=== PATIENT | female | born 1960 | race Caucasian/White ===

== ENCOUNTER → 2016-02-26 | Outpatient (CLI) | payer OTHER ==
[~2016-02-26] MED LIST: ASPIRIN ADULT L81 M2 PO; CIPROFLOXACIN500 M4 PO; CLOPIDOGREL75 MG PO; DARVOCET N 1001 TAB PO; DAYPRO600 M1 PO; HYDROCODONE BIT1 T11 PO; NORVASC5 MG PO; TRAMADOL HCL50 MG PO; ZOFRAN4 MG PO
[2016-02-26 11:55] LABS: BASO # 0.1 10*3/uL (0.0-0.1); BASO % 0.5 % (0.0-1.0); EOS # 0.2 10*3/uL (0.0-0.4); EOS % 1.3 % (1.0-4.0); HEMATOCRIT 45.7 % (37.0-47.0); HEMOGLOBIN 15.6 g/dl (12.0-16.0); IG # 0.1 10*3/uL (0.0-0.1); LYMPH # 3.3 10*3/uL (1.3-4.4); LYMPH % 29.2 % (27.0-41.0); MEAN CELL VOLUME 92.5 fl (81.0-99.0); MEAN CORPUSCULAR HGB 31.6 pg (27.0-31.0); MEAN CORPUSCULAR HGB CONC 34.1 g/dl (33.0-37.0); MEAN PLATELET VOLUME 9.4 fl (9.6-12.3); MONO # 0.8 10*3/uL (0.1-1.0); MONO % 7.2 % (3.0-9.0); NEUT % 61.3 % (47.0-73.0); PLATELET COUNT AUTOMATED 232 10*3/uL (130-400); RED BLOOD COUNT 4.94 10*6/uL (4.10-5.10); RED CELL DISTRI WIDTH 12.4 % (0-14.5); WHITE BLOOD COUNT 11.4 10*3/uL (4.8-10.8)
[2016-02-26 12:10] LABS: ALBUMIN 3.8 gm/dl (3.1-4.5); ALKALINE PHOSPHATASE 97 U/L (45-117); BILIRUBIN, TOTAL 0.2 mg/dl (0.2-1.0); BUN 14 mg/dl (7-24); CARBON DIOXIDE 25 mmol/L (21-32); CHLORIDE 104 mmol/L (98-107); EST GLOM FILT AFRICAN AMERICAN > 60 ml/min; GLUCOSE 95 mg/dL (65-99); POTASSIUM 4.1 mmol/L (3.5-5.1); SGOT/AST 12 IU/L (3-35); SGPT/ALT 19 U/L (12-78); SODIUM 141 mmol/L (136-145); TOTAL PROTEIN 7.6 gm/dL (6.4-8.2)
== END | disposition home or self-care (01) ==
LOC: RESCLI 02:53 → LAB 02:53 → RESCLI 13:20
PROVIDERS: Hospitalist
DX: I10 Essential (primary) hypertension (principal); I38 Endocarditis, valve unspecified; Z72.0 Tobacco use; E66.3 Overweight; I73.00 Raynaud's syndrome without gangrene; Z68.29 Body mass index [BMI] 29.0-29.9, adult

== ENCOUNTER 2016-03-11 14:51 | Emergency (ER) | payer OTHER ==
[~2016-03-11] VITALS: Ht 162.5 cm; Wt 79.4 kg
[~2016-03-11 14:51] MED LIST changes: -ASPIRIN ADULT L81 M2 PO; -CIPROFLOXACIN500 M4 PO; -CLOPIDOGREL75 MG PO; -HYDROCODONE BIT1 T11 PO; -TRAMADOL HCL50 MG PO; -ZOFRAN4 MG PO
[2016-03-11 16:18] LABS: BASO # 0.1 10*3/uL (0.0-0.1); BASO % 0.5 % (0.0-1.0); EOS # 0.2 10*3/uL (0.0-0.4); EOS % 1.2 % (1.0-4.0); HEMATOCRIT 45.7 % (37.0-47.0); HEMOGLOBIN 15.6 g/dl (12.0-16.0); IG # 0.1 10*3/uL (0.0-0.1); LYMPH # 3.2 10*3/uL (1.3-4.4); LYMPH % 24.1 % (27.0-41.0); MEAN CELL VOLUME 92.5 fl (81.0-99.0); MEAN CORPUSCULAR HGB 31.6 pg (27.0-31.0); MEAN CORPUSCULAR HGB CONC 34.1 g/dl (33.0-37.0); MEAN PLATELET VOLUME 9.5 fl (9.6-12.3); MONO # 1.1 10*3/uL (0.1-1.0); MONO % 8.5 % (3.0-9.0); NEUT # 8.6 10*3/uL (2.3-7.9); NEUT % 65.3 % (47.0-73.0); PLATELET COUNT AUTOMATED 227 10*3/uL (130-400); RED BLOOD COUNT 4.94 10*6/uL (4.10-5.10); RED CELL DISTRI WIDTH 12.9 % (0-14.5); WHITE BLOOD COUNT 13.2 10*3/uL (4.8-10.8)
[2016-03-11 16:33] LABS: ALKALINE PHOSPHATASE 93 U/L (45-117); BILIRUBIN, TOTAL 0.3 mg/dl (0.2-1.0); BUN 15 mg/dl (7-24); CARBON DIOXIDE 24 mmol/L (21-32); CHLORIDE 109 mmol/L (98-107); EST GLOM FILT AFRICAN AMERICAN > 60 ml/min; GLUCOSE 97 mg/dL (65-99); POTASSIUM 3.7 mmol/L (3.5-5.1); SGOT/AST 14 IU/L (3-35); SGPT/ALT 22 U/L (12-78); SODIUM 143 mmol/L (136-145)
[2016-03-31] MEDS ORDERED: ASPIRIN ADULT L81 M2 PO (13:01)
[2016-03-31] MEDS ORDERED: CIPROFLOXACIN500 M4 PO (13:01)
[2016-03-31] MEDS ORDERED: CLOPIDOGREL75 MG PO (13:01)
[2016-03-31] MEDS ORDERED: TRAMADOL HCL50 MG PO (13:02)
[2016-04-03] MEDS ORDERED: HYDROCODONE BIT1 T11 PO (08:41)
[2016-04-03] MEDS ORDERED: ZOFRAN4 MG PO (08:42)
== END 2016-03-11 19:35 | disposition short-term general hospital (02) ==
LOC: ED 14:51
PROVIDERS: Student in an Organized Health Care Education/Training Program
DX: I77.6 Arteritis, unspecified (principal); F17.200 Nicotine dependence, unspecified, uncomplicated; Z79.899 Other long term (current) drug therapy

== ENCOUNTER → 2016-05-08 | Outpatient (CLI) | payer OTHER ==
[~2016-05-08] MED LIST changes: +ASPIRIN ADULT L81 M2 PO; +CIPROFLOXACIN500 M4 PO; +CLOPIDOGREL75 MG PO; +HYDROCODONE BIT1 T11 PO; +TRAMADOL HCL50 MG PO; +ZOFRAN4 MG PO
--- NOTE | ~2016-05-08 | PR ---
[place], [place] PROGRESS NOTE NAME: SOFY HERNÁNDEZ [facility] #: [id number] UNIT #: [id number] ROOM: DOCTOR: COLLIN Hayden,CARLEE BIRTHDATE: [birth year] DOS: HBO THERAPY NOTE This is treatment #16. INDICATION: Raynaud's syndrome with gangrene, protocol is 2.0 PADDY with 90 minutes of oxygen and no air breaks. Compression began at 8:41 and ended at 8:50. Treatment length of 108 minutes. Decompression began at 10:20 and ended at 10:29. Treatment length was 108 minutes. Vitals pre-HBO shows a blood pressure of 130/72, pulse is 66, respirations 16, temperature is 98. Post-HBO, the blood pressure is 142/70, pulse of 60, respirations 16, temperature 97.9. TEED scale is grade 0 bilaterally pre and post-HBO treatment. The patient tolerated the treatment well without adverse events. I certify that I supervised this HBO treatment in accordance with Medicare guidelines. A trained emergency response team is readily available per hospital policies and procedures. Continue HBO therapy as ordered. CARLEE POLANCO MD CM:PNTRANS [phone] CARLEE POLANCO M.D. 05/08/16 230 interface
--- NOTE | ~2016-05-08 | PR ---
[place], [place] PROGRESS NOTE NAME: SOFY HERNÁNDEZ [facility] #: [id number] UNIT #: [id number] ROOM: DOCTOR: COLLIN HaydenCARLEE BIRTHDATE: [birth year] DOS: 05/08/2016 CHIEF COMPLAINT: Wound of the tip of the third digit of the right hand. HISTORY OF PRESENT ILLNESS: The location of the wound is the tip of the third digit. The etiology is acute ischemia secondary to Raynaud's phenomenon with small vessel disease. She has undergone OR debridement. She has been in HBO therapy, tolerating it well without any issues for approximately 2 weeks now. She had OR debridement to remove the necrotic tip of the finger; however, she still has an ulcer present. The wound did heal nicely; however, there was dark discoloration noted at the tip of the finger approximately 2 weeks ago, which now has ulcerated and it has formed a necrotic base. It is fairly small, but is present. Overall, she says the pain is improved at the tip of the finger, but she is aware of this ulcer tip that is present. She is still taking her Plavix and aspirin and nitroglycerin ointment as well as calcium channel blockers. She has no other specific complaints. PHYSICAL EXAMINATION: VITAL SIGNS: Stable. Blood pressure is 142/70, pulse 60, respirations 16 and temperature 97.9. MUSCULOSKELETAL: The ulcer is measuring 0.1 x 0.1 x 0.1, but actually it is not actually open, but there is a small necrotic tip noted. It is still slightly tender to touch. The finger remains slightly erythematous and swollen. ASSESSMENT AND PLAN: Acute ischemic digit of the right hand, which is definitely improved overall since when she first presented; however, she continues to have an area of ischemia that is noted with some necrotic tip to the finger still present. She is using Santyl on this and I would like her to also use bacitracin. For now, the x-ray really was unremarkable that she had done, and have her follow up next Thursday. We may need to debride a little bit of this necrotic tissue next week. However, I do want to continue with hyperbaric since it seems that overall her pain and discomfort are improved and I am worried that if we stop it prematurely, this will worsen and cause further ischemia with further loss of her digits. [place], [place] PROGRESS NOTE NAME: SOFY HERNÁNDEZ UNIT #: [id number] ROOM: DOCTOR: COLLIN Hayden,CARLEE BIRTHDATE: [birth year] CARLEE POLANCO MD CM:REBECCA [id number] CARLEE POLANCO M.D. 05/08/16 1755 interface
== END ==
LOC: WOUNDCARE 02:24
DX: I73.01 Raynaud's syndrome with gangrene (principal); L98.491 Non-pressure chronic ulcer of skin of other sites limited to breakdown of skin

== ENCOUNTER → 2016-05-12 | Outpatient (CLI) | payer OTHER ==
--- NOTE | ~2016-05-12 | PR ---
[place], [place] PROGRESS NOTE NAME: SOFY HERNÁNDEZ [facility] #: [id number] UNIT #: [id number] ROOM: DOCTOR: COLLIN Hayden,CARLEE BIRTHDATE: [birth year] DOS: 05/12/2016 HBO THERAPY NOTE This is treatment #17. INDICATION: Raynaud's syndrome with gangrene. The protocol is 2.0 PADDY with 90 minutes of oxygen and no air breaks. Compression began at 8:35. Treatment pressure was reached at 8:45. Decompression began at 10:15 and ended at 10:25. Treatment length was 110 minutes. Vitals, pre-HBO shows a blood pressure of 132/68, pulse is 64, respirations 16, temperature 97.5. Post-HBO, the blood pressure is 120/72, pulse is 60, respirations 16, temperature 98. The indication is Raynaud's syndrome with gangrene. TEED scale is grade 0 bilaterally pre and post-HBO treatment. The patient tolerated the treatment well without adverse events. I certify that I supervised this HBO treatment in accordance with Medicare guidelines. A trained emergency response team is readily available per hospital policies and procedures. Continue HBO therapy as ordered. CARLEE POLANCO MD CM:PNTRANS [phone] CARLEE POLANCO M.D. 05/12/16 2336 interface
== END ==
LOC: WOUNDCARE 01:40
DX: I73.01 Raynaud's syndrome with gangrene (principal)

== ENCOUNTER → 2016-05-13 | Outpatient (CLI) | payer OTHER ==
--- NOTE | ~2016-05-13 | PR ---
[place], [place] PROGRESS NOTE NAME: SOFY HERNÁNDEZ [facility] #: [id number] UNIT #: [id number] ROOM: DOCTOR: COLLIN HaydenCARLEE BIRTHDATE: [birth year] DOS: 05/13/2016 CHIEF COMPLAINT: Wound of the tip of the third digit of the right hand. HISTORY OF PRESENT ILLNESS: The location of the wound is the tip of the third digit. The etiology is acute ischemia secondary to Raynaud's phenomena with small vessel disease. She has undergone OR debridement. She has been in HBO therapy for a total of 8 treatments approximately without any issues in HBO. She is status post OR debridement that removed a large necrotic tip of the finger without any bone involvement. The wound had healed quite nicely; however, there was a very small dark discoloration noted that had reformed at the original area. It was fairly small and she had been using Santyl to the base of it. So, overall she says the pain is definitely improved. It only hurts if she bangs or touches the tip of her finger in a harsh manner. She is tolerating her hyperbaric and she is on aspirin, Plavix, nitroglycerin ointment as well as calcium channel blockers. She has no other specific complaints. PHYSICAL EXAMINATION: VITAL SIGNS: Stable. Temperature is 97.8, pulse is 64, respirations 18, blood pressure is 138/78. SKIN: The wound remains closed. The small ulceration or necrotic area that was starting to reform at the tip has definitely fallen off and so that is not there anymore. There is no sign of infection. There is some thickening of the skin around the tip of the finger, but overall it looks pretty good and stable. No debridement was done. ASSESSMENT AND PLAN: Acute ischemic digit of the right hand, which is improving and appears stable. The small dark necrotic area has improved and fallen off. I would like her to now keep this area dry if possible, to stop using the Santyl and use Betadine on it daily for now. She can keep it covered and protect it at times if she wishes to, but overall I would recommend to try to keep it open. Continue hyperbaric as ordered. CARLEE POLANCO MD CM:REBECCA [phone] CARLEE POLANCO M.D. 05/13/16 1440 interface
--- NOTE | ~2016-05-13 | PR ---
[place], [place] PROGRESS NOTE NAME: SOFY HERNÁNDEZ [facility] #: [id number] UNIT #: [id number] ROOM: DOCTOR: COLLIN Hayden,CARLEE BIRTHDATE: [birth year] DOS: 05/13/2016 HBO THERAPY NOTE This is HBO treatment #18. INDICATION: Raynaud's phenomenon with acute ischemia. The protocol is 2.0 PADDY with 90 minutes of oxygen and no air breaks. Compression began at 8:35. Treatment pressure was reached at 8:45. Treatment length was 110 minutes. Decompression began at 10:15 and ended at 10:25. Vitals pre-HBO shows a blood pressure of 140/82, pulse of 64, respirations 18 and temperature 97.8. Post-HBO, the blood pressure is 138/78, pulse is 64, respirations 18 and temperature 97.8. TEED scale is grade 0 bilaterally pre and post-HBO treatment. The patient tolerated the treatment well without adverse events. I certify that I supervised this treatment in accordance with Medicare guidelines. A trained emergency response team is readily available per hospital policies and procedures. Continue HBO therapy as ordered. CARLEE POLANCO MD CM:PNTRANS [id number] CARLEE POLANCO M.D. 05/13/16 1447 interface
== END ==
LOC: WOUNDCARE 02:55
DX: I73.01 Raynaud's syndrome with gangrene (principal); L98.491 Non-pressure chronic ulcer of skin of other sites limited to breakdown of skin; I99.8 Other disorder of circulatory system

== ENCOUNTER → 2016-05-14 | Outpatient (CLI) | payer OTHER ==
--- NOTE | ~2016-05-14 | PR ---
[place], [place] PROGRESS NOTE NAME: SOFY HERNÁNDEZ [facility] #: [id number] UNIT #: [id number] ROOM: DOCTOR: COLLIN Hayden,CARLEE BIRTHDATE: [birth year] DOS: 05/15/2016 HBO THERAPY NOTE This is treatment #20. INDICATION: Raynaud's syndrome with acute arterial insufficiency. The protocol is 2.0 PADDY with 90 minutes of oxygen and no air breaks. Compression begins at 8:36. Treatment pressure was reached at 8:46. Treatment length was 110 minutes. Decompression begins at 10:16 ends at 10:26. Vitals pre-HBO shows a blood pressure of 140/66, pulse of 60, respirations 16, temperature 97.8. Post-HBO, the blood pressure is 132/76, pulse of 60, respirations 16, temperature 97.9. TEED scale is grade 0 bilaterally pre and post-HBO treatment. The patient tolerated the treatment well. I certify that I supervised this HBO treatment in accordance with Medicare guidelines. A trained emergency response team is readily available per hospital policies and procedures. Continue HBO therapy as ordered you. CARLEE POLANCO MD CM:PNTRANS [id number] CARLEE POLANCO M.D. 05/15/16 1343 interface
== END ==
LOC: WOUNDCARE 03:09
DX: I73.01 Raynaud's syndrome with gangrene (principal); I77.1 Stricture of artery

== ENCOUNTER → 2016-05-15 | Outpatient (CLI) | payer OTHER ==
--- NOTE | ~2016-05-15 | PR ---
[place], [place] PROGRESS NOTE NAME: SOFY HERNÁNDEZ [facility] #: [id number] UNIT #: [id number] ROOM: DOCTOR: COLLIN Hayden,CARLEE BIRTHDATE: [birth year] DOS: 05/15/2016 HBO THERAPY NOTE This is treatment #20. INDICATION: Raynaud's syndrome with acute arterial insufficiency. The protocol is 2.0 PADDY with 90 minutes of oxygen and no air breaks. Compression begins at 8:36. Treatment pressure was reached at 8:46. Treatment length was 110 minutes. Decompression begins at 10:16 ends at 10:26. Vitals pre-HBO shows a blood pressure of 140/66, pulse of 60, respirations 16, temperature 97.8. Post-HBO, the blood pressure is 132/76, pulse of 60, respirations 16, temperature 97.9. TEED scale is grade 0 bilaterally pre and post-HBO treatment. The patient tolerated the treatment well. I certify that I supervised this HBO treatment in accordance with Medicare guidelines. A trained emergency response team is readily available per hospital policies and procedures. Continue HBO therapy as ordered you. CARLEE POLANCO MD CM:PNTRANS 1049 1343 TM CARLEE POLANCO M.D. 05/19/16 0849 [employer].TM
== END ==
LOC: WOUNDCARE 03:20
DX: I73.01 Raynaud's syndrome with gangrene (principal); I77.1 Stricture of artery

== ENCOUNTER → 2016-05-16 | Outpatient (CLI) | payer OTHER ==
[~2016-05-16] MED LIST changes: +AMLODIPINE BESY1 TAB PO; +CELEBREX100 MG PO; +NORVASC10 MG PO; +PLAVIX75 M1 PO
--- NOTE | ~2016-05-16 | PROC NOTE ---
[place], [place] PROCEDURE NOTE [id number] UN[facility] #: [id number] ROOM: DOCTOR: BLUE PRETTY DO BIRTHDATE: [birth year] DOS: 05/16/2016 HYPERBARIC PROCEDURE NOTE SUPERVISING PHYSICIAN: Blue Pretty DO SUBJECTIVE: The patient is scheduled for HBO treatment. The protocol was used for a 90-minute treatment at 2.0 PADDY and 100% oxygen with both a 10-minute compression and decompression time interval. Total treatment time 110 minutes. This is treatment number 21. OBJECTIVE: VITAL SIGNS: Both pre and post treatment vital signs were taken, reviewed and appeared stable. Exam pre and post-treatment: EARS: Canals clear. No evidence of blockage, edema, ear infection or barotraumas. NOSE: No rhinorrhea or bleeding. HEART: Regular. LUNGS: Clear to aeration bilaterally. ASSESSMENT: 1. Raynaud syndrome with gangrene. 2. An uneventful HBO treatment was completed. PLAN: Continue current atrial treatment at the protocol used. BLUE PRETTY DO CM:PROCNOTE:PROCEDURE NOTE 1158 [id number] BLUE PRETTY DO
== END ==
LOC: WOUNDCARE 01:02
DX: I73.01 Raynaud's syndrome with gangrene (principal)

== ENCOUNTER 2016-05-20 07:53 | Emergency (ER) | payer OTHER ==
[~2016-05-20] VITALS: Ht 162.5 cm; Wt 77.1 kg
[~2016-05-20 07:53] MED LIST changes: -AMLODIPINE BESY1 TAB PO; -CELEBREX100 MG PO; -NORVASC10 MG PO; -PLAVIX75 M1 PO
[2016-05-20] MEDS ORDERED: CELEBREX100 MG PO (08:05)
[2016-05-20] MEDS ORDERED: NORVASC10 MG PO (08:05)
[2016-05-20] MEDS ORDERED: PLAVIX75 M1 PO (08:06)
[2016-05-20] MEDS ORDERED: AMLODIPINE BESY1 TAB PO (08:07)
== END 2016-05-20 09:27 | disposition home or self-care (01) ==
LOC: ED 07:53
DX: G51.0 Bell's palsy (principal); F17.200 Nicotine dependence, unspecified, uncomplicated; Z90.49 Acquired absence of other specified parts of digestive tract; Z98.890 Other specified postprocedural states; Z98.42 Cataract extraction status, left eye; Z98.41 Cataract extraction status, right eye; Z79.899 Other long term (current) drug therapy; Z79.82 Long term (current) use of aspirin

== ENCOUNTER → 2016-05-21 | Outpatient (CLI) | payer OTHER ==
[~2016-05-21] MED LIST changes: +AMLODIPINE BESY1 TAB PO; +CELEBREX100 MG PO; +NORVASC10 MG PO; +PLAVIX75 M1 PO
--- NOTE | ~2016-05-21 | PR ---
[place], [place] PROGRESS NOTE NAME: SOFY HERNÁNDEZ [facility] #: [id number] UNIT #: [id number] ROOM: DOCTOR: COLLIN HaydenCARLEE BIRTHDATE: [birth year] DOS: 05/21/2016 CHIEF COMPLAINT: Followup of ischemic ulcer of the digit. The location of the wound is the tip of the third digit. The etiology is acute ischemia secondary to Raynaud's phenomenon with small vessel disease. She has undergone OR debridement. She has been in HBO now for a total of approximately 20 treatments. The wound continues to be painful. It is dry, it is not draining. The pain is not worse than it was, it is about the same as it was last week, mostly just whenever she touches the tip of her finger. It is still painful, but otherwise it is definitely not as painful as when she first presented to us. We have been asking her to keep the area dry with Betadine at this point, and she is keeping it open to air. She has had new issues since I have last seen her. She has complained of ear pain of the right ear and where there was associated facial paralysis. She was seen in the Emergency Room Department yesterday complaining of facial drooping, slurred speech and pain behind the right ear. 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 She had a CT scan done without contrast, which was no acute intracranial bleed or territorial stroke. The visualization of the paranasal sinuses, orbits, mastoid air cells were unremarkable, and she was told to follow up with ENT. She does have an appointment with them next Thursday. She still has the paralysis and pain behind her right ear. She reports no other specific complaints. OBJECTIVE: VITAL SIGNS: Today, her examination is as follows: Her vitals are stable. Blood pressure is 118/70, pulse of 59, respirations 16, temperature is 98.5. WOUND EXAM: The wound is basically looks the same. It still appears to be closed; however, does have still some thickened fibrotic hyperkeratoses still present. It is still measuring around 0.1 x 0.1 x 0.1, it is not draining. It is not acutely cellulitic, but it is still somewhat tender to touch. No debridement was done. ASSESSMENT AND PLAN: Raynaud's phenomenon, causing acute ischemia, digital ischemia in the patient. She has completed 20 treatments of hyperbaric. The wound appears stable, has not worsened; however, due to her recent complaint of the pain behind the right ear, we will hold off on any further HBO treatments. I did examine her ear. I did not see any overt trauma to the ear drum did not appear to be hemorrhagic in anyway. No sign of infection, but she does have this Benitez's palsy, that is obviously notable on the right side of the face on the same side where she is complaining of the pain behind her ear, so we will hold off on HBO until she sees her ENT to further decide if we should continue with the HBO or just hold off. She has completed 20 treatments. In the meantime, we will continue to keep the wound dry at some point. We may have to do a little bit of a debridement, but I would like to hold off for now as much as we can. Followup is in one week. [place], [place] PROGRESS NOTE NAME: EDGARSOFY L UNIT #: [id number] ROOM: DOCTOR: CARLEE POLANCO M.D. BIRTHDATE: [birth year] CARLEE POLANCO MD CM:PNTRANS [phone] CARLEE POLANCO M.D. 05/22/16 0021 interface
== END ==
LOC: WOUNDCARE 01:28
DX: I73.01 Raynaud's syndrome with gangrene (principal); L98.491 Non-pressure chronic ulcer of skin of other sites limited to breakdown of skin; G51.0 Bell's palsy

== ENCOUNTER → 2016-05-27 | Outpatient (CLI) | payer OTHER | END | disposition home or self-care (01) | LOC: RESCLI 03:52 | DX: G51.0 Bell's palsy (principal); F41.9 Anxiety disorder, unspecified ==

== ENCOUNTER → 2016-05-29 | Outpatient (CLI) | payer OTHER ==
--- NOTE | ~2016-05-29 | PR ---
[place], [place] PROGRESS NOTE NAME[id number] UNIT #: [id number] ROOM: DOCTOR: COLLIN HaydenCARLEE BIRTHDATE: [birth year] DOS: 05/29/2016 SUBJECTIVE: The patient comes in for her followup wound care visit. CHIEF COMPLAINT: Her ulcer of the third digit on the right hand. HISTORY OF PRESENT ILLNESS: This patient last week was noted to have an acute episode of Benitez palsy. Her HBO was on hold secondary to this as she had an ENT consultation who did feel that HBO was not related to the Benitez palsy and did not feel that there was any contraindication to finishing up her treatments. So, she has had about 20 treatments of HBO. The wound continues to be sore, but overall the soreness is definitely improved since when she first started. She still has some crusting of the tip of her finger, but it is definitely improved overall since when she first presented. She says her Benitez palsy is also improving and she is able to close her eyes a lot better now. She still has some discomfort in the right ear at times and this has not really changed significantly. OBJECTIVE: VITAL SIGNS: Stable. Temp is 98.1, pulse is 68, respirations 18, blood pressure is 130/70. WOUND EXAMINATION: The wound continues to be measured at 0.1 x 0.1 x 0.1. There is some hyperkeratosis noted and some part of this is lifting off on its own. This area was debrided selectively with forceps and scissors just to remove some of the hyperkeratotic nonviable tissue. This was no bleeding. The patient tolerated this debridement well. ASSESSMENT AND PLAN: Raynaud syndrome with recent acute ischemic area of the finger, which seems to be responding to HBO. We had to take a break due to the Benitez palsy and clearance from ENT. She has been cleared to go back into the HBO chamber and she is willing to go back starting early next week, so hopefully we will be able to finish at least 30 treatments for her. She is maintained on calcium channel blockers, aspirin and Plavix and has been started on steroids for her Benitez palsy. Follow up for wound care visit in 2 weeks. [place], [place] PROGRESS NOTE NAME: SOFY HERNÁNDEZ UNIT #: [id number] ROOM: DOCTOR: CARLEE POLANCO M.D. BIRTHDATE: [birth year] CARLEE POLANCO MD CM:REBECCA [phone] CARLEE POLANCO M.D. 05/29/161954 interface
== END ==
LOC: WOUNDCARE 02:42
DX: I73.01 Raynaud's syndrome with gangrene (principal); G51.0 Bell's palsy

== ENCOUNTER → 2016-06-02 | Outpatient (CLI) | payer OTHER ==
--- NOTE | ~2016-06-02 | PR ---
[place], [place] PROGRESS NOTE NAME: SOFY HERNÁNDEZ [facility] #: [id number] UNIT #: [id number] ROOM: DOCTOR: COLLIN Hayden,CARLEE BIRTHDATE: [birth year] DOS: 06/02/2016 This is an HBO therapy note. The indication is Raynaud's syndrome with gangrene, acute arterial insufficiency. This is treatment #22. The protocol is 2.0 PADDY with 90 minutes of oxygen and no air breaks. Treatment began at 8:33. Treatment pressure was reached at 8:45. Decompression began at 10:15 and ended at 10:27. Treatment length was 114 minutes. Compression rate down and decompression rate up was 1.0 psi per minute. Vitals, pre-HBO, the blood pressure of 156/70, pulse of 68, respirations 16, temperature 97.9. Post-HBO, the blood pressure is 138/80, pulse of 62, respirations 16, and temperature 98. TEED scale is grade 0 bilaterally pre and post-HBO treatment. The patient tolerated the treatment well without adverse events. I certify that I supervised this HBO treatment in accordance with Medicare guidelines. A trained emergency response team is readily available per hospital policies and procedures. Continue HBO therapy as ordered. CARLEE POLANCO MD CM:PNTRANS 1131 0231 CARLEE POLANCO M.D. 06/03/16 0231 interface
== END ==
LOC: WOUNDCARE 02:11
DX: I73.01 Raynaud's syndrome with gangrene (principal); I77.1 Stricture of artery

== ENCOUNTER → 2016-06-03 | Outpatient (CLI) | payer OTHER ==
--- NOTE | ~2016-06-03 | PR ---
[place], [place] PROGRESS NOTE NAME: SOFY HERNÁNDEZ [facility] #: [id number] UNIT #: [id number] ROOM: DOCTOR: COLLIN Hayden,CARLEE BIRTHDATE: [birth year] DOS: 06/03/2016 This is treatment #23. INDICATION: Raynaud's syndrome with gangrene, acute arterial insufficiency. PROTOCOL: 2.0 PADDY with 90 minutes of oxygen and no air breaks. Compression began at 8:34. Treatment pressure was reached at 8:44. Decompression began at 10:14 and ended at 10:24. Treatment length was 110 minutes. Vitals pre-HBO shows a blood pressure of 122/70, a pulse of 64, respirations 16, temperature is 98.1. Post-HBO, the blood pressure is 142/74, pulse of 60, respirations 16, temperature is 98. TEED scale is grade 0 bilaterally pre and post-HBO treatment. The patient tolerated the treatment well without adverse events. I certify that I supervised this HBO treatment in accordance with Medicare guidelines. A trained emergency response team is readily available per hospital policies and procedures. Continue HBO therapy as ordered. CARLEE POLANCO MD CM:PNTRANS [phone] CARLEE POLANCO M.D. 06/04/16 0755 interface
== END ==
LOC: WOUNDCARE 02:00 → ORTHO 11:29 → WOUNDCARE 11:34
DX: I73.01 Raynaud's syndrome with gangrene (principal); I77.1 Stricture of artery

== ENCOUNTER → 2016-06-04 | Outpatient (CLI) | payer OTHER ==
--- NOTE | ~2016-06-04 | PR ---
[place], [place] PROGRESS NOTE NAME: SOFY HERNÁNDEZ [facility] #: [id number] UNIT #: [id number] ROOM: DOCTOR: SOHAIL ESTEBAN DO BIRTHDATE: [birth year] DOS: 06/04/2016 The patient supervised in the chamber on 06/04/2016 for 24th hyperbaric treatment for Raynaud syndrome with gangrene. Pre-therapy blood pressure 120/70, pulse 67, respirations 18, temperature 98.1. Post-therapy blood pressure 140/80, pulse 78, respirations 18, temperature 98. TEED score was 0 bilaterally. The patient supervised in the chamber 110 minutes total, 90 minutes at depth at 2 atmospheres of pressure with no air breaks. She tolerated the procedure without difficulty and will return for next treatment. SOHAIL ESTEBAN DO CM:PNTRANS [phone] SOHAIL ESTEBAN DO 06/06/16 1537 interface
== END ==
LOC: WOUNDCARE 10:24
DX: I73.01 Raynaud's syndrome with gangrene (principal)

== ENCOUNTER → 2016-06-05 | Outpatient (CLI) | payer OTHER ==
--- NOTE | ~2016-06-05 | PR ---
[place], [place] PROGRESS NOTE NAME: SOFY HERNÁNDEZ [facility] #: [id number] UNIT #: [id number] ROOM: DOCTOR: SOHAIL ESTEBAN DO BIRTHDATE: [birth year] DOS: 06/05/2016 HYPERBARIC NOTE SUBJECTIVE: The patient is supervised in the hyperbaric chamber on 06/05/2016 for 25th hyperbaric treatment for Raynaud syndrome with gangrene. OBJECTIVE: VITAL SIGNS: Pre-therapy, blood pressure 120/68, pulse 70, respirations 18, temperature is 98. Post-therapy, blood pressure , pulse , respirations 18, temperature is 98.1. ASSESSMENT: The patient is supervised in the chamber for 108 minutes total, 90 minutes at depth at 2 atmospheres of pressure with no air breaks. She tolerated the procedure without difficulty and will return for the next treatment. SOHAIL ESTEBAN DO CM:PNTRANS [phone] SOHAIL ESTEBAN DO 06/06/16 1540 interface
== END ==
LOC: WOUNDCARE 02:06
DX: I73.01 Raynaud's syndrome with gangrene (principal)

== ENCOUNTER → 2016-06-09 | Outpatient (CLI) | payer OTHER ==
--- NOTE | ~2016-06-09 | PR ---
[place], [place] PROGRESS NOTE NAME: SOFY HERNÁNDEZ [facility] #: [id number] UNIT #: [id number] ROOM: DOCTOR: BLUE PRETTY DO BIRTHDATE: [birth year] DOS: 06/09/2016 SUPERVISING PHYSICIAN: Dr. Blue Pretty. SUBJECTIVE: The patient is scheduled for HBO treatment. The protocol is used for minute treatment at 2.0 PADDY and 100% oxygen with both 89 minute compression and decompression time interval. This is treatment #26. Total treatment length 108 minutes. OBJECTIVE: VITAL SIGNS: Both pre and post-treatment vital signs were taken and reviewed and appeared stable. Exam completed pre and post-treatment. Ears: Canals were clear with no evidence of blockage, edema, ears infections, and barotraumas. Nose: No rhinorrhea or bleeding. HEART: Regular. LUNGS: Clear to auscultation bilaterally. ASSESSMENT: 1. Raynaud syndrome with gangrene. 2. Uneventful HBO treatment was completed. PLAN: The patient will continue current HBO treatment scheduled and protocol used. BLUE PRETTY DO CM:REBECCA 1129 1536 BLUE PRETTY DO 06/15/16 1537 interface
== END ==
LOC: WOUNDCARE 10:19
DX: I73.01 Raynaud's syndrome with gangrene (principal)

== ENCOUNTER → 2016-06-10 | Outpatient (CLI) | payer OTHER ==
--- NOTE | ~2016-06-10 | PR ---
[place], [place] PROGRESS NOTE NAME: SOFY HERNÁNDEZ [facility] #: [id number] UNIT #: [id number] ROOM: DOCTOR: RAUL PRTETY DO BIRTHDATE: [birth year] DOS: 06/10/2016 HYPERBARIC PROCEDURE NOTE SUPERVISING PHYSICIAN: Dr. Pretty. SUBJECTIVE: The patient is scheduled for HBO treatment. The protocol was used for 90-minute treatment at 2.0 PADDY and 100% oxygen with both a 10-minute compression and decompression time interval. This is treatment #27. Total treatment length 110 minutes. OBJECTIVE: VITAL SIGNS: Both pre and post treatment vital signs were taken, reviewed and appeared stable. Exam completed pre and post treatment. EARS: Ear canals were clear with no evidence of blockage, edema, infection or barotraumas. NOSE: No evidence of rhinorrhea or bleeding. HEART: Regular. LUNGS: Clear to auscultation bilaterally. ASSESSMENT: 1. An uneventful HBO treatment was completed. 2. Raynaud syndrome with gangrene. PLAN: The patient will continue the current HBO treatment schedule and protocol used. RAUL PRETTY DO CM:REBECCA 1131 1515 RAUL PRETTY DO 06/15/16 1831 interface
== END ==
LOC: WOUNDCARE 04:19
DX: I73.01 Raynaud's syndrome with gangrene (principal)

== ENCOUNTER → 2016-06-11 | Outpatient (CLI) | payer OTHER ==
--- NOTE | ~2016-06-11 | PR ---
[place], [place] PROGRESS NOTE NAME: SOFY HERNÁNDEZ [facility] #: [id number] UNIT #: [id number] ROOM: DOCTOR: COLLIN Hayden,CARLEE BIRTHDATE: [birth year] DOS: 06/11/2016 HBO THERAPY NOTE This is treatment #28. The protocol is 2.0 PADDY with 90 minutes of oxygen and no air breaks. The indication is Raynaud's syndrome with gangrene. Compression began at 830. Treatment pressure was reached at 838. Decompression began at 10:08 and ended at 10:16. Treatment length was 106 minutes. Vitals pre-HBO shows a blood pressure of 138/70, a pulse of 68, respirations 18, temperature is 98. Post-HBO, the blood pressure is 120/70, a pulse of 64, respirations 18, temperature is 97.7. TEED scale is grade 0 bilaterally pre and post-HBO treatment. The patient tolerated the treatment well without adverse events. I certify that I supervised this HBO treatment in accordance with Medicare guidelines. A trained emergency response team is readily available per hospital policies and procedures. Continue HBO therapy as ordered. CARLEE POLANCO MD CM:PNTRANS [id number] CARLEE POLANCO M.D. 06/11/162320 interface
== END ==
LOC: WOUNDCARE 02:26
DX: I73.01 Raynaud's syndrome with gangrene (principal)

== ENCOUNTER → 2016-06-12 | Outpatient (CLI) | payer OTHER ==
--- NOTE | ~2016-06-12 | PR ---
[place], [place] PROGRESS NOTE NAME: SOFY HERNÁNDEZ UNIT #: [id number] ROOM: DOCTOR: COLLIN HaydenCARLEE BIRTHDATE: [birth year] DOS: 06/12/2016 WOUND CARE FOLLOWUP NOTE CHIEF COMPLAINT: Ulcer of the third digit on the right hand. HISTORY OF PRESENT ILLNESS: The patient has almost completed 30 treatments of HBO. The wound is located on the tip of the third digit. It is an acute ischemic ulcer secondary to what appears to be Raynaud's phenomenon with small vessel disease. The wound continues to be somewhat painful, it is definitely not as painful as it was before she started hyperbarics, but it is still causing some discomfort. There is no drainage. It is pretty dry at this point, but there seems to be some more tissue starting to liftoff a little bit on its own. There is no drainage. No fevers or chills. 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 She offers no other specific complaints. PHYSICAL EXAMINATION: VITAL SIGNS: Her temperature is 97.7, pulse of 60, respirations 16, blood pressure is 140/76. WOUND EXAMINATION: The wound is measuring approximately 0.1 x 0.1 x 0.1. The measurements are unchanged. As it is essentially has hyperkeratotic area that is starting to liftoff a little bit, a selective debridement was done. The tissue removed was just nonviable hyperkeratotic tissue. The patient tolerated the debridement well. Post-debridement measurements are unchanged. ASSESSMENT AND PLAN: Ulcer of the third digit. She still has some necrotic area present, it is definitely improved overall from when she first began treatment. However, [facility] to see if we can get more of this cleaned up a little bit. She may need a little bit more debridement next week. She has almost completed 30 treatments, I do believe that it has help prevent further loss of her digit; however, she may still be a candidate for 10 more treatments if insurance approves. Follow up in Wound Clinic in one week. Dr. Tapia to see if he has any further input regarding any further surgical options. [place], [place] PROGRESS NOTE NAME: SOFY HERNÁNDEZ UNIT #: [id number] ROOM: DOCTOR: CARLEE POLANCO M.D. BIRTHDATE: [birth year] CARLEE POLANCO MD CM:REBECCA 1154 09 CARLEE POLANCO M.D. 06/12/161910 interface
--- NOTE | ~2016-06-12 | PN ---
[place], [place] PROGRESS NOTE NAME: SOFY HERNÁNDEZ [facility] #: [id number] UNIT #: [id number] ROOM: DOCTOR: CARLEE POLANCO M.D. BIRTHDATE: [birth year] DATE: 06/12/16 HBO THERAPY NOTE This is treatment #29. INDICATION: Raynaud syndrome with gangrene and relatively acute ulcer. Protocol is 2.0 PADDY with 90 minutes of oxygen and no air breaks. Compression began at 0831. Treatment pressure was reached at 0840. Treatment length was 108 minutes. Decompression began at 1010 and ended at 1019. Treatment length was 108 minutes. Vitals are pre-HBO 144/76, pulse of 64, respirations 16, temperature 97.6. Post-HBO, the blood pressure is 140/76, pulse of 60, respirations 16, temperature is 97.7. TEED scale is grade 0 bilaterally pre and post-HBO treatment. The patient tolerated the treatment well without any adverse events. I certify that I supervised this HBO treatment in accordance with Medicare guidelines. A trained emergency response team is readily available per hospital policies and procedures. Continue HBO therapy as ordered. CARLEE POLANCO M.D. CM:PNTRANS [id number] 143 CARLEE POLANCO M.D. 06/16/16 143 EDISON SHANKAR.R
== END ==
LOC: WOUNDCARE 01:28
DX: L98.491 Non-pressure chronic ulcer of skin of other sites limited to breakdown of skin (principal); I73.01 Raynaud's syndrome with gangrene

== ENCOUNTER → 2016-06-13 | Outpatient (CLI) | payer OTHER ==
--- NOTE | ~2016-06-13 | PR ---
[place], [place] PROGRESS NOTE NAME: SOFY HERNÁNDEZ [facility] #: [id number] UNIT #: [id number] ROOM: DOCTOR: COLLIN Hayden,CARLEE BIRTHDATE: [birth year] DOS: 06/13/2016 HBO THERAPY NOTE This is treatment #30. The indication is Raynaud's phenomenon with acute arterial insufficiency. The protocol is 2.0 PADDY with 90 minutes of oxygen and no air breaks. Compression began at 8:30. Treatment pressure was reached at 8:40. Treatment length was 110 minutes. Decompression began at 10:10 and ended at 10:20. Compression rate down and decompression rate up was 1.5 psi per minute. VITAL SIGNS: Pre-HBO shows a blood pressure of 126/70, a pulse of 62, respirations 16, temperature 97.8. Post-HBO, the blood pressure is 154/74, pulse 64, respirations 16, temperature 97.9. TEED scale is grade 0 bilaterally pre and post-HBO treatment. The patient tolerated the treatment well without adverse events. I certify that I supervised this HBO treatment in accordance with Medicare guidelines. A trained emergency response team is readily available per hospital policies and procedures. Continue HBO therapy as ordered. CARLEE POLANCO MD CM:PNTRANS [id number] CARLEE POLANCO M.D. 06/14/16 0030 interface
== END ==
LOC: WOUNDCARE 01:25
DX: I73.01 Raynaud's syndrome with gangrene (principal)

== ENCOUNTER → 2016-06-16 | Outpatient (CLI) | payer OTHER ==
--- NOTE | ~2016-06-16 | PR ---
[place], [place] PROGRESS NOTE NAME: SOFY HERNÁNDEZ [facility] #: [id number] UNIT #: [id number] ROOM: DOCTOR: COLLIN Hayden,CARLEE BIRTHDATE: [birth year] DOS: 06/16/2016 HBO THERAPY NOTE Treatment #31. INDICATION: Raynaud syndrome with acute peripheral ischemia. Protocol is 2.0 PADDY with 90 minutes of oxygen and no air breaks. Compression began at 8:18, treatment pressure was reached at 828. Decompression began at 9:58 and ended at 10:08. Treatment length was 110 minutes. Compression rate down was 1.5 psi per minute. Decompression rate up was 1.5 psi per minute. Vitals pre-HBO shows a blood pressure of 152/74, pulse of 62, respirations 16, temperature is 97.8. Post-HBO, the blood pressure is 160/78, pulse of 68, respirations 16, temperature is 97.7. TEED scale is grade 0 bilaterally pre and post-HBO treatment. The patient tolerated the treatment well without adverse events. I certify that I supervised this HBO treatment in accordance with Medicare guidelines. A trained emergency response team is readily available per hospital policies and procedures. Continue HBO therapy as ordered. CARLEE POLANCO MD CM:PNTRANS [id number] CARLEE POLANCO M.D. 06/16/16 2244 interface
== END ==
LOC: WOUNDCARE 02:06
DX: I73.01 Raynaud's syndrome with gangrene (principal); I99.8 Other disorder of circulatory system

== ENCOUNTER → 2016-06-19 | Outpatient (CLI) | payer OTHER ==
--- NOTE | ~2016-06-19 | PR ---
[place], [place] PROGRESS NOTE NAME: SOFY HERNÁNDEZ [facility] #: [id number] UNIT #: [id number] ROOM: DOCTOR: COLLIN Hayden,CARLEE BIRTHDATE: [birth year] DOS: 06/19/2016 This is an HBO therapy note. INDICATION: Raynaud's syndrome with acute arterial insufficiency. This is treatment #32. The protocol is 2.0 PADDY with 90 minutes of oxygen and no air breaks. Compression began at 9:50. Treatment pressure was reached at 10. Decompression began at 11:30 and ended at 11:40. Treatment length was 110 minutes. Vital signs pre-HBO shows a blood pressure of 150/72, pulse is 64, respirations 16, temperature is 97.8. Post-HBO, the blood pressure is 138/80, pulse of 68, respirations 16, temperature is 97.9. TEED scale is grade 0 bilaterally pre and post-HBO treatment. I certify that I supervised this HBO treatment in accordance with Medicare guidelines. A trained emergency response team is readily available per hospital policies and procedures. Continue HBO therapy as ordered. CARLEE POLANCO MD CM:PNTRANS [id number] CARLEE POLANCO M.D. 06/20/16 0519 interface
== END ==
LOC: WOUNDCARE 10:35
DX: I73.01 Raynaud's syndrome with gangrene (principal); I77.1 Stricture of artery

== ENCOUNTER → 2016-06-20 | Outpatient (CLI) | payer OTHER ==
--- NOTE | ~2016-06-20 | PR ---
[place], [place] PROGRESS NOTE NAME: SOFY HERNÁNDEZ [facility] #: [id number] UNIT #: [id number] ROOM: DOCTOR: COLLIN Hayden,CARLEE BIRTHDATE: [birth year] DOS: 06/20/2016 This is a HBO therapy note This is treatment #33. The protocol is 2.0 PADDY with 90 minutes of oxygen and no air breaks. The indication is Raynaud's syndrome with gangrene. Compression began at 8:29. Treatment pressure was reached at 8:38. Treatment length was 108 minutes. Decompression began at 10:08 and ended at 10:17. Vitals pre-HBO shows a blood pressure of 140/74, a pulse of 68, respirations 16, temperature 97.9. Post-HBO, the blood pressure is 120/70, pulse of 64, respirations 16, temperature 97.8. TEED scale is grade 0 bilaterally pre and post-HBO treatment. The patient tolerated the treatment well without adverse events. I certify that I supervised this HBO treatment in accordance with Medicare guidelines. A trained emergency response team is readily available per hospital policies and procedures. Continue HBO therapy as ordered. CARLEE POLANCO MD CM:PNTRANS [phone] CARLEE POLANCO M.D. 06/21/16 0608 interface
== END ==
LOC: WOUNDCARE 02:58
DX: I73.01 Raynaud's syndrome with gangrene (principal)

== ENCOUNTER → 2016-06-23 | Outpatient (CLI) | payer OTHER ==
--- NOTE | ~2016-06-23 | PR ---
[place], [place] PROGRESS NOTE NAME: SOFY HERNÁNDEZ [facility] #: [id number] UNIT #: [id number] ROOM: DOCTOR: COLLIN Hayden,CARLEE BIRTHDATE: [birth year] DOS: 06/23/2016 HBO THERAPY NOTE This is treatment #34. INDICATION: Raynaud's syndrome with acute arterial insufficiency. The protocol is 2.0 PADDY with 90 minutes of oxygen and no air breaks. Compression began at 8:35. Treatment pressure was reached at 8:45. Decompression began at 10:15 and ended at 10:25. Treatment length was 110 minutes. Vitals pre-HBO shows a blood pressure of 140/68, a pulse of 68, respirations 16, temperature of 98. Post-HBO, the blood pressure is 154/80, a pulse of 72, respirations 16, temperature is 97.9. TEED scale is grade 0 bilaterally pre and post-HBO treatment. The patient tolerated the treatment well without adverse events. I certify that I supervised this HBO treatment in accordance with Medicare guidelines. A trained emergency response team is readily available per hospital policies and procedures. Continue HBO therapy as ordered. CARLEE POLANCO MD CM:PNTRANS [id number] CARLEE POLANCO M.D. 06/24/16 1102 interface
== END ==
LOC: WOUNDCARE 00:52
DX: I73.00 Raynaud's syndrome without gangrene (principal); I77.1 Stricture of artery

== ENCOUNTER → 2016-06-24 | Outpatient (CLI) | payer OTHER ==
--- NOTE | ~2016-06-24 | PR ---
[place], [place] PROGRESS NOTE NAME: SOFY HERNÁNDEZ [facility] #: [id number] UNIT #: [id number] ROOM: DOCTOR: COLLIN Hayden,CARLEE BIRTHDATE: [birth year] DOS: 06/24/2016 This is HBO THERAPY NOTE This is HBO treatment #35. INDICATION: Acute arterial insufficiency secondary to Raynaud's syndrome. The protocol is 2.0 PADDY with 90 minutes of oxygen and no air breaks. Compression began at 823. Treatment pressure was reached at 833. Treatment length was 110 minutes. Decompression began at 10:03 and ended at 10:13. Vitals pre-HBO shows a blood pressure of 140/72, pulse of 76, respirations 16, temperature is 97.6. Post-HBO, the blood pressure is 140/80, a pulse of 62, respirations 16, temperature is 97.5. TEED scale is grade 0 bilaterally pre and post-HBO treatment. The patient tolerated the treatment well without adverse events. I certify that I supervised this HBO treatment in accordance with Medicare guidelines. A trained emergency response team is readily available per hospital policies and procedures. Continue HBO therapy as ordered. CARLEE POLANCO MD CM:PNTRANS [phone] CARLEE POLANCO M.D. 06/25/16 0758 interface
== END ==
LOC: WOUNDCARE 04:09
DX: I73.01 Raynaud's syndrome with gangrene (principal); I77.1 Stricture of artery

== ENCOUNTER → 2016-06-25 | Outpatient (CLI) | payer OTHER ==
--- NOTE | ~2016-06-25 | PR ---
[place], [place] PROGRESS NOTE NAME: SOFY HERNÁNDEZ [facility] #: [id number] UNIT #: [id number] ROOM: DOCTOR: COLLIN Hayden,CARLEE BIRTHDATE: [birth year] DOS: 06/25/2016 HBO THERAPY NOTE This is treatment #36. The indication is Raynaud's syndrome with acute arterial insufficiency of the tip of her finger. Protocol is 2.0 PADDY with 90 minutes of oxygen and no air breaks. This is treatment #36. Compression began at 8:11. Treatment pressure was reached at 8:21. Treatment length was 110 minutes. Decompression began at 9:51 and ended at 10:01. Compression rate down and decompression rate up was 1.5 psi per minute. Vital signs pre-HBO shows a blood pressure of 132/70, pulse of 64, respirations 16, temperature is 97.6. Post-HBO, the blood pressure is 140/78, pulse of 60, respirations 16, temperature is 97.5. TEED scale is grade 0 bilaterally pre and post-HBO treatment. The patient tolerated the treatment well without adverse events. I certify that I supervised this HBO treatment in accordance with Medicare guidelines. A trained emergency response team is readily available per hospital policies and procedures. Continue HBO therapy as ordered. CARLEE POLANCO MD CM:PNTRANS [id number] CARLEE POLANCO M.D. 06/26/16 2347 interface
--- NOTE | ~2016-06-25 | PR ---
[place], [place] PROGRESS NOTE NAME: SOFY HERNÁNDEZ [facility] #: [id number] UNIT #: [id number] ROOM: DOCTOR: COLLIN Hayden,CARLEE BIRTHDATE: [birth year] DOS: 06/25/2016 SUBJECTIVE: The patient comes in for routine visit. CHIEF COMPLAINT: Ulcer of the tip of the third digit of the right hand. It is an arterial insufficiency wound that was fairly acute. The patient was initially treated with heparin and had a workup done for acute arterial insufficiency of the right hand. She has been undergoing HBO treatment with steadily improving wound. The tip of the finger was necrotic and very, very painful when she first came. There was also underlying wound infection, which was treated. The patient had an OR debridement, and the wound has been steadily improving. She only has 4 more treatments left with the HBO. Last week there was still a small necrotic area present. We had asked her to use Santyl at that time and also she says it is definitely getting better and improving from last week. Pain is much improved as well. PHYSICAL EXAMINATION: VITAL SIGNS: Stable. Blood pressure is 132/70, pulse of 64, respirations 16, temperature is 97.6. WOUND EXAM: The wound is actually healed at this point. It is not open. It is somewhat thick and callused a little bit, but it looks stable and fairly good. ASSESSMENT AND PLAN: The patient is to complete the HBO therapy and for now, we try to use Aquaphor to keep the area moisturized. I did explain to her also that she may want to consider a followup with a hand surgeon for surgical intervention of the nerves to the hand that may help alleviate some of the vasoconstriction assisted with her illness. She is going to be seen by a players assistant in the near future, so she wants to wait until she sees them first. I also did say to go ahead and restart the nitroglycerin paste that she was on to be used at night. Wound care followup in one week. CARLEE POLANCO MD CM:REBECCA [id number] CARLEE POLANCO M.D. 06/26/16 0012 interface
== END ==
LOC: WOUNDCARE 01:14
DX: L98.491 Non-pressure chronic ulcer of skin of other sites limited to breakdown of skin (principal); I73.01 Raynaud's syndrome with gangrene; I77.1 Stricture of artery

== ENCOUNTER → 2016-06-27 | Outpatient (CLI) | payer OTHER ==
--- NOTE | ~2016-06-27 | PROC NOTE ---
[place], [place] PROCEDURE NOTE NAME: SOFY HERNÁNDEZ [facility] #: [id number] UNIT #: [id number] ROOM: DOCTOR: ELIO FLANAGAN DO BIRTHDATE: [birth year] DOS: 06/27/2016 HYPERBARIC PROCEDURE NOTE SUPERVISING [facility] PHYSICIAN: Elio Flanagan DO. SUBJECTIVE: The patient is here for her 37th of 40 total hyperbaric treatments for Raynaud's syndrome of gangrene. OBJECTIVE: PRE-THERAPY VITAL SIGNS: Blood pressure 138/70, pulse 90, respirations 16, temperature 98.1. POST-THERAPY VITAL SIGNS: Blood pressure 124/70, pulse 78, respirations 16, temperature 97.8. HEENT: Bilateral ear exams unremarkable. Treatment protocol was 2.0 PADDY with 90 minutes oxygen and no air breaks. The patient was supervised in the chamber for a total of 108 minutes. ASSESSMENT: 1. Raynaud's syndrome of gangrene. 2. Uneventful hyperbaric treatment. PLAN: The patient will return for her 38th treatment. ELIO FLANAGAN DO CM:PROCNOTE:PROCEDURE NOTE 1932 ELIO FLANAGAN DO
== END ==
LOC: WOUNDCARE 02:51
DX: I73.01 Raynaud's syndrome with gangrene (principal)

== ENCOUNTER → 2016-06-30 | Outpatient (CLI) | payer OTHER ==
--- NOTE | ~2016-06-30 | PROC NOTE ---
[place], [place] PROCEDURE NOTE [id number] UNIT #: [id number] ROOM: DOCTOR: COLLIN Hayden,CARLEE BIRTHDATE: [birth year] DOS: 06/30/2016 THIS IS HBO THERAPY NOTE INDICATION: Acute arterial insufficiency secondary Raynaud's syndrome with gangrene at the tip of finger. Protocol is 2.0 PADDY with 90 minutes of oxygen and no air breaks. This is treatment #38. Compression began at 8:25. Treatment pressure was reached at 8:35. Treatment length was 110 minutes. Decompression began at 10:05 and ended at 10:15. Vitals pre-HBO shows a blood pressure of 144/72, pulse of 80, respirations 16, temperature is 97.8. Post-HBO, the blood pressure is 136/70, pulse of 66, respirations 16, temperature is 97.9. TEED scale is grade 0 bilaterally pre and post-HBO treatment. The patient tolerated the treatment well without adverse events. I certify that I supervised this HBO treatment in accordance with Medicare guidelines. A trained emergency response team is readily available per hospital policies and procedures. Continue HBO therapy as ordered. CARLEE POLANCO MD CM:PROCNOTE:PROCEDURE NOTE [phone] CARLEE POLANCO M.D.
== END ==
LOC: WOUNDCARE 10:36
DX: I73.01 Raynaud's syndrome with gangrene (principal); I77.1 Stricture of artery

== ENCOUNTER → 2016-07-01 | Outpatient (CLI) | payer OTHER ==
--- NOTE | ~2016-07-01 | PROC NOTE ---
[place], [place] PROCEDURE NOTE NAME: [facility]Z [id number] UNIT #: [id number] ROOM: DOCTOR: RAUL PRETTY DO BIRTHDATE: [birth year] DOS: 07/01/2016 SUPERVISING PHYSICIAN: Dr. Pretty. SUBJECTIVE: The patient is scheduled for HBO treatment. The protocol was used for 90 minute treatment at 2.0 PADDY on 100% oxygen with both a 10 minute compression and decompression time interval. Total treatment length 110 minutes. This is treatment #39. OBJECTIVE: VITAL SIGNS: Both pre and post-treatment vital signs were taken and reviewed and appeared stable. Exam completed pre and post-treatment. EARS: The canals were clear with no evidence of blockage, edema, or ear infection or barotraumas. NOSE: No rhinorrhea or bleeding. HEART: Regular. LUNGS: Clear to auscultation clear to auscultation bilaterally. ASSESSMENT: 1. Raynaud syndrome with gangrene 2. An uneventful HBO treatment was completed. PLAN: The patient will continue with current HBO treatment schedule and protocol used. RAUL PRETTY DO CM:PROCNOTE:PROCEDURE NOTE [id number] RAUL PRETTY DO
== END ==
LOC: WOUNDCARE 09:38
DX: I73.01 Raynaud's syndrome with gangrene (principal)

== ENCOUNTER → 2016-07-02 | Outpatient (CLI) | payer OTHER ==
--- NOTE | ~2016-07-02 | PR ---
[place], [place] PROGRESS NOTE NAME: SOFY HERNÁNDEZ [facility] #: [id number] UNIT #: [id number] ROOM: DOCTOR: COLLIN Hayden,CARLEE BIRTHDATE: [birth year] DOS: 07/02/2016 THIS IS A HBO THERAPY NOTE INDICATION: Raynaud's syndrome with acute arterial insufficiency. This is the treatment #40. TREATMENT PROTOCOL: A 2.0 PADDY with 90 minutes of oxygen and no air breaks. Compression began at 10:58. Treatment pressure was reached at 11:08. Treatment length was 110 minutes. Decompression began at 12:38 and ended at 12:48. OBJECTIVE: VITAL SIGNS: Pre-HBO shows a blood pressure of 130/72, pulse of 64, respirations 16, temperature is 97.9. Post-HBO, the blood pressure is 126/72, pulse is 70, respirations 16, temperature is 97.8. TEED scale is grade 0 bilaterally pre and post-HBO treatment. The patient tolerated the treatment well without adverse events. I certify that I supervised this HBO treatment in accordance with Medicare guidelines. A trained emergency response team is readily available per hospital policies and procedures. Continue HBO therapy as ordered. CARLEE POLANCO MD CM:PNTRANS [phone] CARLEE POLANCO M.D. 07/03/16 0847 interface
--- NOTE | ~2016-07-02 | PR ---
[place], [place] PROGRESS NOTE NAME: SOFY HERNÁNDEZ [facility] #: [id number] UNIT #: [id number] ROOM: DOCTOR: CARLEE POLANCO M.D. BIRTHDATE: [birth year] DOS: 07/02/2016 CHIEF COMPLAINT: Followup of wound of the third digit of the right hand. She has had an ulcer there that has been steadily improving since the beginning of hyperbaric. She has had debridement done and there has definitely been an overall improvement of the ulcer. She has completed 40 treatments of hyperbaric with improvement in her wound. The wound continues to appear healed. She still has occasional pain, especially if she bumps it; however, overall it is definitely much improved. The wound remains closed. There is a tiny pinpoint area of darkness present, which is just noted recently, but otherwise it is really not open at this time. PHYSICAL EXAMINATION: She is afebrile, pulse is 70, respirations 16, blood pressure is 126/72. ASSESSMENT AND PLAN: The wound is healed. We will discharge the patient from the Wound Clinic. She is going to follow up with her internal salesperson. I did say that if she had any further problems or complications, she should come back to see us. She does not have a rheumatology appointment until July. In the meantime, I would like her to continue with her nitroglycerin topically that she uses at night, I would like her to do that. Keep the hand moisturized with Aquaphor and to avoid any smoking. Also, recommended for her was to discuss with the internal salesperson whether a consultation with a hand surgeon for possible surgical intervention of the nerves to the hand may help prevent vasoconstriction. These are other possibility that she may need to pursue in the future. CARLEE POLANCO MD CM:PNTRANS 1352 1027 CARLEE POLANCO M.D. 07/03/16 1027 interface
== END ==
LOC: WOUNDCARE 01:11
DX: L98.491 Non-pressure chronic ulcer of skin of other sites limited to breakdown of skin (principal); I73.01 Raynaud's syndrome with gangrene; I77.1 Stricture of artery; I48.91 Unspecified atrial fibrillation

== ENCOUNTER → 2016-08-05 | Outpatient (CLI) | payer OTHER | END | disposition home or self-care (01) | LOC: RESCLI 02:01 | DX: I10 Essential (primary) hypertension (principal); I73.01 Raynaud's syndrome with gangrene; Z87.891 Personal history of nicotine dependence ==

== ENCOUNTER → 2017-02-04 | Outpatient (CLI) | payer OTHER | END | disposition home or self-care (01) | LOC: RESCLI 02-03 01:01 | DX: I10 Essential (primary) hypertension (principal); I73.1 Thromboangiitis obliterans [Buerger's disease]; I73.01 Raynaud's syndrome with gangrene; F41.9 Anxiety disorder, unspecified; E66.09 Other obesity due to excess calories; E55.9 Vitamin D deficiency, unspecified; Z72.0 Tobacco use; Z71.6 Tobacco abuse counseling ==

== ENCOUNTER → 2017-02-12 | Outpatient (CLI) | payer OTHER ==
[2017-02-12 07:27] LABS: BASO # 0.1 10*3/uL (0.0-0.1); BASO % 0.6 % (0.0-1.0); EOS # 0.2 10*3/uL (0.0-0.4); EOS % 2.1 % (1.0-4.0); HEMATOCRIT 44.7 % (37.0-47.0); HEMOGLOBIN 15.4 g/dl (12.0-16.0); LYMPH # 2.4 10*3/uL (1.3-4.4); LYMPH % 20.6 % (27.0-41.0); MEAN CELL VOLUME 91.6 fl (81.0-99.0); MEAN CORPUSCULAR HGB 31.6 pg (27.0-31.0); MEAN CORPUSCULAR HGB CONC 34.5 g/dl (33.0-37.0); MEAN PLATELET VOLUME 9.7 fl (9.6-12.3); MONO # 0.8 10*3/uL (0.1-1.0); MONO % 7.1 % (3.0-9.0); NEUT % 69.3 % (47.0-73.0); PLATELET COUNT AUTOMATED 254 10*3/uL (130-400); RED BLOOD COUNT 4.88 10*6/uL (4.10-5.10); RED CELL DISTRI WIDTH 13.1 % (0-14.5); WHITE BLOOD COUNT 11.6 10*3/uL (4.8-10.8)
[2017-02-12 08:08] LABS: ALBUMIN 3.6 gm/dl (3.1-4.5); ALKALINE PHOSPHATASE 115 U/L (45-117); BUN 13 mg/dl (7-24); CHLORIDE 107 mmol/L (98-107); CHOLESTEROL 180 mg/dL (<200); CREATININE 1.07 mg/dL (0.55-1.02); HDL CHOLESTEROL 34 mg/dl (40-60); LDL CHOLESTEROL 112 mg/dL (9-159); POTASSIUM 4.5 mmol/L (3.5-5.1); SGOT/AST 14 IU/L (3-35); SGPT/ALT 27 U/L (12-78); SODIUM 142 mmol/L (136-145); TOTAL PROTEIN 7.7 gm/dL (6.4-8.2); TRIGLYCERIDES 168 mg/dl (<150); VLDL CHOLESTEROL 34 mg/dL (6-40)
[2017-02-12 09:18] LABS: VITAMIN D, 25-HYDROXY 28.3 ng/mL (30-100)
== END | disposition home or self-care (01) ==
LOC: LAB 06:55
PROVIDERS: Internal Medicine
DX: Z00.01 Encounter for general adult medical examination with abnormal findings (principal); R79.89 Other specified abnormal findings of blood chemistry

== ENCOUNTER → 2017-02-18 | Outpatient (CLI) | payer OTHER | END | disposition home or self-care (01) | LOC: RESCLI 03:02 | DX: Z12.31 Encounter for screening mammogram for malignant neoplasm of breast (principal); Z12.11 Encounter for screening for malignant neoplasm of colon; I10 Essential (primary) hypertension; I73.1 Thromboangiitis obliterans [Buerger's disease]; F41.9 Anxiety disorder, unspecified; E66.9 Obesity, unspecified; Z72.0 Tobacco use ==

== ENCOUNTER → 2017-03-05 | Outpatient (CLI) | payer OTHER | LOC: MAMMO 13:16 | DX: Z12.31 Encounter for screening mammogram for malignant neoplasm of breast (principal) ==

== ENCOUNTER → 2017-04-15 | Day surgery (SDC) | payer OTHER ==
[~2017-04-15] VITALS: Ht 162.5 cm; Wt 85.7 kg
[~2017-04-15] MED LIST changes: +BUPROPION HCL150 M2 PO; +ZESTRIL10 MG PO
--- NOTE | ~2017-04-15 | O ---
[place], [place] OPERATIVE NOTE NAME: SOFY HERNÁNDEZ UNIT #: [id number] ROOM: DOCTOR: HANK BERMUDEZ MD BIRTHDATE: [birth year] DOS: 04/15/2017 INDICATIONS: The patient has presented for colonic screening test. The patient is 57 years old. ALLERGIES: No known medication. FAMILY HISTORY: Noncontributory. PAST SURGICAL HISTORY: Skin CA, cataract, appendectomy, and . PAST MEDICAL HISTORY: Hypertension, Ebnitez's palsy, and Raynaud's. SOCIAL HISTORY: One pack smoker, nonalcohol consumer. PROCEDURE: Today's procedure part of investigation is colonoscopy plus piecemeal polypectomy. PREMEDICATION: Versed and Diprivan. SCOPE: Olympus folding colonoscope 10L video. REPORT: After putting the patient in left lateral position and application of lubricant to the scope, the scope was introduced. Thereafter, under direct visualization, I advanced the length of colon without difficulty. Base of the cecum explored, appendiceal orifice identified, ileocecal valve was defined and photographed. Tortuosity of the colon at splenic and hepatic flexure was appreciated. Sessile polypoid lesion from sigmoid colon with piecemeal polypectomy removed. Air was suctioned out. The patient was extubated and tolerated procedure well. IMPRESSION: Tortuous colon, Sessile colonic polyp rectal pouch. PLAN AND DISCUSSION: Restarting Celebrex, aspirin and Plavix from tomorrow and high fiber otherwise. ACTIVITY: Ad marie. FOLLOWUP: Routinely with you in office p.r.n. Visit with us in clinic. Thank you very much. [place], [place] OPERATIVE NOTE NAME: SOFY HERNÁNDEZ UNIT #: [id number] ROOM: DOCTOR: HANK BERMUDEZ MD BIRTHDATE: [birth year] HANK BERMUDEZ MD CM:OPRECORD:OPERATIVE NOTE 1103 1508 HANK BERMUDEZ MD 04/15/17 1507 interface
[2017-04-15 09:14] VITALS: BP 108/54
[2017-04-15 10:42] VITALS: BP 83/44
[2017-04-15 11:00] VITALS: BP 98/51
[2017-04-15 11:12] VITALS: BP 98/46
== END ==
LOC: SDC 04-10 12:30
DX: Z12.11 Encounter for screening for malignant neoplasm of colon (principal); K63.5 Polyp of colon; Z90.49 Acquired absence of other specified parts of digestive tract; I10 Essential (primary) hypertension; F17.210 Nicotine dependence, cigarettes, uncomplicated; F32.9 Major depressive disorder, single episode, unspecified; Z98.890 Other specified postprocedural states; K63.89 Other specified diseases of intestine

== ENCOUNTER → 2017-05-11 | Outpatient (CLI) | payer OTHER | END | disposition home or self-care (01) | LOC: RESCLI 04:12 | DX: Z00.01 Encounter for general adult medical examination with abnormal findings (principal); I10 Essential (primary) hypertension; I73.1 Thromboangiitis obliterans [Buerger's disease]; F41.9 Anxiety disorder, unspecified; E55.9 Vitamin D deficiency, unspecified; E66.9 Obesity, unspecified; F17.210 Nicotine dependence, cigarettes, uncomplicated ==

== ENCOUNTER → 2017-08-06 | Outpatient (CLI) | payer OTHER ==
[2017-08-06 10:11] LABS: BASO # 0.1 10*3/uL (0.0-0.1); BASO % 0.6 % (0.0-1.0); EOS # 0.2 10*3/uL (0.0-0.4); HEMATOCRIT 43.4 % (37.0-47.0); HEMOGLOBIN 14.1 g/dl (12.0-16.0); LYMPH # 2.8 10*3/uL (1.3-4.4); LYMPH % 26.9 % (27.0-41.0); MEAN CELL VOLUME 96.4 fl (81.0-99.0); MEAN CORPUSCULAR HGB 31.3 pg (27.0-31.0); MEAN CORPUSCULAR HGB CONC 32.5 g/dl (33.0-37.0); MEAN PLATELET VOLUME 9.3 fl (9.6-12.3); MONO # 0.9 10*3/uL (0.1-1.0); MONO % 8.3 % (3.0-9.0); NEUT # 6.3 10*3/uL (2.3-7.9); NEUT % 61.8 % (47.0-73.0); PLATELET COUNT AUTOMATED 221 10*3/uL (130-400); WHITE BLOOD COUNT 10.3 10*3/uL (4.8-10.8)
[2017-08-06 10:32] LABS: ALBUMIN 3.6 gm/dl (3.1-4.5); ALKALINE PHOSPHATASE 126 U/L (45-117); BUN 23 mg/dl (7-24); CHLORIDE 108 mmol/L (98-107); CREATININE 1.06 mg/dL (0.55-1.02); SGOT/AST 9 IU/L (3-35); SGPT/ALT 22 U/L (12-78); SODIUM 140 mmol/L (136-145); TOTAL PROTEIN 7.3 gm/dL (6.4-8.2)
== END | disposition home or self-care (01) ==
LOC: LAB 09:45
PROVIDERS: Internal Medicine
DX: Z00.00 Encounter for general adult medical examination without abnormal findings (principal)

== ENCOUNTER → 2017-08-10 | Outpatient (CLI) | payer OTHER | END | disposition home or self-care (01) | LOC: RESCLI 04:54 | DX: I10 Essential (primary) hypertension (principal); I73.1 Thromboangiitis obliterans [Buerger's disease]; M19.90 Unspecified osteoarthritis, unspecified site; E55.9 Vitamin D deficiency, unspecified; R73.03 Prediabetes; F41.9 Anxiety disorder, unspecified; F17.210 Nicotine dependence, cigarettes, uncomplicated; Z71.6 Tobacco abuse counseling ==

== ENCOUNTER → 2017-09-18 | Outpatient (CLI) | payer OTHER | END | disposition home or self-care (01) | LOC: RESCLI 08:25 | DX: I10 Essential (primary) hypertension (principal); M79.641 Pain in right hand; I73.1 Thromboangiitis obliterans [Buerger's disease]; M19.90 Unspecified osteoarthritis, unspecified site; R73.03 Prediabetes; E55.9 Vitamin D deficiency, unspecified; F41.9 Anxiety disorder, unspecified; R23.8 Other skin changes; F17.210 Nicotine dependence, cigarettes, uncomplicated; Z90.49 Acquired absence of other specified parts of digestive tract; Z71.6 Tobacco abuse counseling ==

== ENCOUNTER → 2017-10-22 | Outpatient (CLI) | payer OTHER | END | disposition home or self-care (01) | LOC: RESCLI 02:27 | DX: I10 Essential (primary) hypertension (principal); I73.1 Thromboangiitis obliterans [Buerger's disease]; R73.03 Prediabetes; E55.9 Vitamin D deficiency, unspecified; F41.9 Anxiety disorder, unspecified; F17.210 Nicotine dependence, cigarettes, uncomplicated; Z71.6 Tobacco abuse counseling; Z90.49 Acquired absence of other specified parts of digestive tract ==

== ENCOUNTER → 2018-02-10 | Outpatient (CLI) | payer OTHER | END | disposition home or self-care (01) | LOC: RESCLI 01:57 | DX: I73.1 Thromboangiitis obliterans [Buerger's disease] (principal); I10 Essential (primary) hypertension; R73.03 Prediabetes; E55.9 Vitamin D deficiency, unspecified; F41.9 Anxiety disorder, unspecified; E66.09 Other obesity due to excess calories; F17.210 Nicotine dependence, cigarettes, uncomplicated; Z71.6 Tobacco abuse counseling; Z79.82 Long term (current) use of aspirin; Z79.899 Other long term (current) drug therapy; Z88.8 Allergy status to other drugs, medicaments and biological substances; Z90.49 Acquired absence of other specified parts of digestive tract ==

== ENCOUNTER → 2018-03-03 | Outpatient (CLI) | payer OTHER ==
[2018-03-03 10:12] LABS: CHOLESTEROL 213 mg/dL (<200); HDL CHOLESTEROL 38 mg/dl (40-60); LDL CHOLESTEROL 132 mg/dL (9-159); TRIGLYCERIDES 214 mg/dl (<150); VLDL CHOLESTEROL 43 mg/dL (6-40)
== END | disposition home or self-care (01) ==
LOC: LAB 09:12
PROVIDERS: Internal Medicine
DX: E55.9 Vitamin D deficiency, unspecified (principal); R73.03 Prediabetes

== ENCOUNTER → 2018-05-26 | Outpatient (CLI) | payer OTHER | END | disposition home or self-care (01) | LOC: RESCLI 01:49 | DX: I10 Essential (primary) hypertension (principal); I73.1 Thromboangiitis obliterans [Buerger's disease]; R73.03 Prediabetes; E55.9 Vitamin D deficiency, unspecified; F41.9 Anxiety disorder, unspecified; E66.09 Other obesity due to excess calories; E78.5 Hyperlipidemia, unspecified; F17.200 Nicotine dependence, unspecified, uncomplicated; Z71.6 Tobacco abuse counseling; Z79.899 Other long term (current) drug therapy; Z88.8 Allergy status to other drugs, medicaments and biological substances ==

== ENCOUNTER → 2018-08-30 | Outpatient (CLI) | payer OTHER ==
[2018-08-30 09:16] LABS: CHOLESTEROL 128 mg/dL (<200); HDL CHOLESTEROL 36 mg/dl (40-60); LDL CHOLESTEROL 61 mg/dL (9-159); TRIGLYCERIDES 153 mg/dl (<150); VLDL CHOLESTEROL 31 mg/dL (6-40)
== END | disposition home or self-care (01) ==
LOC: LAB 08:14
PROVIDERS: Internal Medicine
DX: E78.5 Hyperlipidemia, unspecified (principal); E55.9 Vitamin D deficiency, unspecified; R73.03 Prediabetes

== ENCOUNTER → 2018-09-03 | Outpatient (CLI) | payer OTHER | END | disposition home or self-care (01) | LOC: RESCLI 00:24 | DX: E55.9 Vitamin D deficiency, unspecified (principal); I10 Essential (primary) hypertension; I73.1 Thromboangiitis obliterans [Buerger's disease]; F41.9 Anxiety disorder, unspecified; R73.03 Prediabetes; E66.9 Obesity, unspecified; Z72.0 Tobacco use; Z71.6 Tobacco abuse counseling; Z79.899 Other long term (current) drug therapy ==

== ENCOUNTER → 2018-09-22 | Outpatient (CLI) | payer OTHER | END | disposition home or self-care (01) | LOC: MAMMO 09:43 | DX: Z12.31 Encounter for screening mammogram for malignant neoplasm of breast (principal) ==

== ENCOUNTER → 2018-12-15 | Outpatient (CLI) | payer OTHER | END | disposition home or self-care (01) | LOC: RESCLI 00:11 | DX: I10 Essential (primary) hypertension (principal); I73.1 Thromboangiitis obliterans [Buerger's disease]; F41.9 Anxiety disorder, unspecified; E55.9 Vitamin D deficiency, unspecified; E78.5 Hyperlipidemia, unspecified; R73.03 Prediabetes; Z79.899 Other long term (current) drug therapy; Z72.0 Tobacco use ==

== ENCOUNTER → 2019-04-06 | Outpatient (CLI) | payer OTHER | END | disposition home or self-care (01) | LOC: LAB 08:36 | DX: E55.9 Vitamin D deficiency, unspecified (principal); R73.03 Prediabetes ==

== ENCOUNTER → 2019-04-20 | Outpatient (CLI) | payer OTHER | END | disposition home or self-care (01) | LOC: RESCLI 01:10 | DX: I10 Essential (primary) hypertension (principal); I73.1 Thromboangiitis obliterans [Buerger's disease]; F41.9 Anxiety disorder, unspecified; E55.9 Vitamin D deficiency, unspecified; E78.5 Hyperlipidemia, unspecified; R09.89 Other specified symptoms and signs involving the circulatory and respiratory systems; R73.03 Prediabetes; R01.1 Cardiac murmur, unspecified; Z71.6 Tobacco abuse counseling; Z72.0 Tobacco use; Z79.899 Other long term (current) drug therapy; Z90.89 Acquired absence of other organs ==

== ENCOUNTER → 2019-05-09 | Outpatient (CLI) | payer OTHER | END | disposition home or self-care (01) | LOC: US 12:21 | DX: I65.23 Occlusion and stenosis of bilateral carotid arteries (principal); I10 Essential (primary) hypertension; R09.89 Other specified symptoms and signs involving the circulatory and respiratory systems ==

== ENCOUNTER → 2019-08-11 | Outpatient (CLI) | payer OTHER | END | disposition home or self-care (01) | LOC: CARD 14:55 | DX: R01.1 Cardiac murmur, unspecified (principal); I10 Essential (primary) hypertension ==

== ENCOUNTER → 2019-10-12 | Outpatient (CLI) | payer OTHER ==
[2019-10-12 12:39] LABS: BASO # 0.1 10*3/uL (0.0-0.1); BASO % 0.5 % (0.0-1.0); EOS # 0.3 10*3/uL (0.0-0.4); EOS % 2.2 % (1.0-4.0); HEMATOCRIT 43.5 % (37.0-47.0); LYMPH # 2.6 10*3/uL (1.3-4.4); LYMPH % 20.2 % (27.0-41.0); MEAN CELL VOLUME 91.8 fl (81.0-99.0); MEAN CORPUSCULAR HGB 29.7 pg (27.0-31.0); MEAN CORPUSCULAR HGB CONC 32.4 g/dl (33.0-37.0); MEAN PLATELET VOLUME 9.7 fl (9.6-12.3); MONO % 7.9 % (3.0-9.0); PLATELET COUNT AUTOMATED 256 10*3/uL (130-400); RED BLOOD COUNT 4.74 10*6/uL (4.10-5.10); RED CELL DISTRI WIDTH 13.5 % (0-14.5)
[2019-10-12 13:08] LABS: ALBUMIN 3.9 gm/dl (3.1-4.5); ALKALINE PHOSPHATASE 115 U/L (45-117); BUN 23 mg/dl (7-24); CHLORIDE 110 mmol/L (98-107); CREATININE 0.94 mg/dL (0.55-1.02); POTASSIUM 4.1 mmol/L (3.5-5.1); SGOT/AST 11 IU/L (3-35); SGPT/ALT 25 U/L (12-78); SODIUM 138 mmol/L (136-145); TOTAL PROTEIN 7.7 gm/dL (6.4-8.2)
== END | disposition home or self-care (01) ==
LOC: RESCLI 05:53
PROVIDERS: Social Worker Clinical; ATTEND Internal Medicine
DX: M75.00 Adhesive capsulitis of unspecified shoulder (principal); I10 Essential (primary) hypertension; E78.5 Hyperlipidemia, unspecified; E55.9 Vitamin D deficiency, unspecified; R09.89 Other specified symptoms and signs involving the circulatory and respiratory systems; R01.1 Cardiac murmur, unspecified; F17.200 Nicotine dependence, unspecified, uncomplicated; Z12.4 Encounter for screening for malignant neoplasm of cervix; Z12.31 Encounter for screening mammogram for malignant neoplasm of breast; Z79.82 Long term (current) use of aspirin; Z79.899 Other long term (current) drug therapy; Z85.828 Personal history of other malignant neoplasm of skin; Z88.8 Allergy status to other drugs, medicaments and biological substances

== ENCOUNTER → 2019-10-27 | Outpatient (CLI) | payer OTHER | END | disposition home or self-care (01) | LOC: MAMMO 02:59 | PROVIDERS: ATTEND Internal Medicine Nephrology | DX: Z12.31 Encounter for screening mammogram for malignant neoplasm of breast (principal) ==

== ENCOUNTER → 2019-12-21 | Outpatient (CLI) | payer OTHER | END | disposition home or self-care (01) | LOC: RESCLI 02:47 | PROVIDERS: ATTEND Internal Medicine | DX: Z23 Encounter for immunization (principal); M75.00 Adhesive capsulitis of unspecified shoulder ==

== ENCOUNTER → 2020-07-09 | Outpatient (CLI) | payer OTHER | END | disposition home or self-care (01) | LOC: RESCLI 01:28 | PROVIDERS: ATTEND Internal Medicine Nephrology | DX: I73.01 Raynaud's syndrome with gangrene (principal); I73.1 Thromboangiitis obliterans [Buerger's disease]; F41.9 Anxiety disorder, unspecified; I10 Essential (primary) hypertension; E78.5 Hyperlipidemia, unspecified; R73.03 Prediabetes; L72.0 Epidermal cyst; Z12.2 Encounter for screening for malignant neoplasm of respiratory organs; Z79.82 Long term (current) use of aspirin; Z79.899 Other long term (current) drug therapy; Z98.890 Other specified postprocedural states; Z87.891 Personal history of nicotine dependence ==

== ENCOUNTER → 2020-07-19 | Outpatient (CLI) | payer OTHER ==
[2020-07-19 08:23] LABS: BASO # 0.1 10*3/uL (0.0-0.1); BASO % 0.8 % (0.0-1.0); EOS # 0.2 10*3/uL (0.0-0.4); EOS % 1.7 % (1.0-4.0); HEMATOCRIT 43.8 % (37.0-47.0); LYMPH # 2.3 10*3/uL (1.3-4.4); LYMPH % 22.2 % (27.0-41.0); MEAN CELL VOLUME 91.6 fl (81.0-99.0); MEAN CORPUSCULAR HGB 30.1 pg (27.0-31.0); MEAN CORPUSCULAR HGB CONC 32.9 g/dl (33.0-37.0); MEAN PLATELET VOLUME 9.3 fl (9.6-12.3); MONO # 0.7 10*3/uL (0.1-1.0); MONO % 7.3 % (3.0-9.0); NEUT # 6.9 10*3/uL (2.3-7.9); NEUT % 67.7 % (47.0-73.0); PLATELET COUNT AUTOMATED 250 10*3/uL (130-400); RED BLOOD COUNT 4.78 10*6/uL (4.10-5.10); RED CELL DISTRI WIDTH 13.4 % (0-14.5); WHITE BLOOD COUNT 10.1 10*3/uL (4.8-10.8)
[2020-07-19 09:00] LABS: ALBUMIN 3.5 gm/dl (3.1-4.5); BUN 17 mg/dl (7-24); CHLORIDE 110 mmol/L (98-107); CHOLESTEROL 133 mg/dL (<200); POTASSIUM 4.4 mmol/L (3.5-5.1); SGOT/AST 8 IU/L (3-35); SGPT/ALT 21 U/L (12-78); SODIUM 139 mmol/L (136-145); TOTAL PROTEIN 7.2 gm/dL (6.4-8.2); TRIGLYCERIDES 174 mg/dl (<150)
[2020-07-19 09:01] LABS: ALKALINE PHOSPHATASE 104 U/L (45-117); LDL CHOLESTEROL 64 mg/dL (9-159)
== END | disposition home or self-care (01) ==
LOC: LAB 08:02
PROVIDERS: ATTEND Internal Medicine
DX: I10 Essential (primary) hypertension (principal); E78.5 Hyperlipidemia, unspecified; R73.03 Prediabetes

== ENCOUNTER → 2020-09-26 | Outpatient (CLI) | payer OTHER | END | disposition home or self-care (01) | LOC: RESCLI 02:09 | PROVIDERS: ATTEND Student in an Organized Health Care Education/Training Program | DX: I10 Essential (primary) hypertension (principal); E55.9 Vitamin D deficiency, unspecified; I73.1 Thromboangiitis obliterans [Buerger's disease]; E78.5 Hyperlipidemia, unspecified; F41.9 Anxiety disorder, unspecified; F17.210 Nicotine dependence, cigarettes, uncomplicated; Z79.82 Long term (current) use of aspirin; Z79.899 Other long term (current) drug therapy; Z98.890 Other specified postprocedural states ==

== ENCOUNTER → 2020-11-19 | Outpatient (CLI) | payer OTHER | END | disposition home or self-care (01) | LOC: RESCLI 14:42 | PROVIDERS: ATTEND Internal Medicine Nephrology | DX: M54.16 Radiculopathy, lumbar region (principal); I10 Essential (primary) hypertension; I73.1 Thromboangiitis obliterans [Buerger's disease]; E78.5 Hyperlipidemia, unspecified; Z12.2 Encounter for screening for malignant neoplasm of respiratory organs; F41.9 Anxiety disorder, unspecified; E55.9 Vitamin D deficiency, unspecified; I70.0 Atherosclerosis of aorta; F17.210 Nicotine dependence, cigarettes, uncomplicated; Z98.890 Other specified postprocedural states; Z79.82 Long term (current) use of aspirin ==

== ENCOUNTER → 2020-12-05 | Outpatient (CLI) | payer OTHER | END | disposition home or self-care (01) | LOC: RESCLI 02:38 | PROVIDERS: ATTEND Family Medicine | DX: M54.41 Lumbago with sciatica, right side (principal); I10 Essential (primary) hypertension; F41.9 Anxiety disorder, unspecified; I73.1 Thromboangiitis obliterans [Buerger's disease]; E55.9 Vitamin D deficiency, unspecified; E78.5 Hyperlipidemia, unspecified; M54.10 Radiculopathy, site unspecified; Z79.899 Other long term (current) drug therapy; Z98.890 Other specified postprocedural states ==

== ENCOUNTER → 2020-12-13 | Outpatient (CLI) | payer OTHER | END | disposition home or self-care (01) | LOC: MAMMO 12-10 11:00 | PROVIDERS: ATTEND Internal Medicine | DX: Z12.31 Encounter for screening mammogram for malignant neoplasm of breast (principal); N64.89 Other specified disorders of breast ==

== ENCOUNTER → 2021-05-16 | Outpatient (CLI) | payer OTHER | END | disposition home or self-care (01) | LOC: RESCLI 02:29 | PROVIDERS: ATTEND Internal Medicine | DX: F41.9 Anxiety disorder, unspecified (principal); I10 Essential (primary) hypertension; E78.5 Hyperlipidemia, unspecified; R73.03 Prediabetes; F17.210 Nicotine dependence, cigarettes, uncomplicated; Z71.6 Tobacco abuse counseling; I73.01 Raynaud's syndrome with gangrene; I73.1 Thromboangiitis obliterans [Buerger's disease]; M54.10 Radiculopathy, site unspecified; Z79.899 Other long term (current) drug therapy ==

== ENCOUNTER → 2021-06-28 | Outpatient (CLI) | payer OTHER ==
[2021-06-28 08:28] LABS: BASO # 0.1 10*3/uL (0.0-0.1); BASO % 0.5 % (0.0-1.0); EOS # 0.2 10*3/uL (0.0-0.4); EOS % 1.9 % (1.0-4.0); HEMATOCRIT 44.1 % (37.0-47.0); LYMPH # 1.9 10*3/uL (1.3-4.4); MEAN CORPUSCULAR HGB 30.2 pg (27.0-31.0); MEAN CORPUSCULAR HGB CONC 33.6 g/dl (33.0-37.0); MEAN PLATELET VOLUME 9.5 fl (9.6-12.3); MONO # 0.8 10*3/uL (0.1-1.0); MONO % 7.8 % (3.0-9.0); NEUT # 7.2 10*3/uL (2.3-7.9); NEUT % 70.5 % (47.0-73.0); PLATELET COUNT AUTOMATED 244 10*3/uL (130-400); RED CELL DISTRI WIDTH 14.6 % (0-14.5); WHITE BLOOD COUNT 10.2 10*3/uL (4.8-10.8)
[2021-06-28 09:00] LABS: BUN 20 mg/dl (7-24); CHLORIDE 109 mmol/L (98-107); CHOLESTEROL 135 mg/dL (<200); CREATININE 1.12 mg/dL (0.55-1.02); LDL CHOLESTEROL 59 mg/dL (9-159); POTASSIUM 4.3 mmol/L (3.5-5.1); SGOT/AST 14 IU/L (3-35); SGPT/ALT 27 U/L (12-78); SODIUM 140 mmol/L (136-145); TOTAL PROTEIN 7.9 gm/dL (6.4-8.2); TRIGLYCERIDES 223 mg/dl (<150)
[2021-06-28 09:01] LABS: ALKALINE PHOSPHATASE 116 U/L (45-117)
== END | disposition home or self-care (01) ==
LOC: LAB 08:00
PROVIDERS: Student in an Organized Health Care Education/Training Program; ATTEND Internal Medicine
DX: I10 Essential (primary) hypertension (principal); E78.5 Hyperlipidemia, unspecified; R73.03 Prediabetes